=== PATIENT | female | born 1950 | race African-American/Black ===

== ENCOUNTER 2017-01-23 03:29 | Observation (INO) ==
[2017-01-23] MEDS ORDERED: ONDANSETRON 4 MG/2 ML VIAL IV PRN (07:13)
[2017-01-23] MEDS ORDERED: DEXTROSE 50% 25 GM/50 ML SYRINGE IV PRN (07:16)
[2017-01-23] MEDS ORDERED: GLUCAGON 1 MG VIAL IM PRN (07:16)
[2017-01-23 07:59] LABS: Basophils % 0.4 % (0.0-0.8); Eosinophils % 0.4 % (0.00-10.9); Hematocrit 34.9 VOL% (35.7-47.0); Hemoglobin 12.1 GM/DL (12.0-16.0); Immature Granulocytes % 0.1 %; Immature Granulocytes Absolute 0.01 #; Lymphocytes # 2.1 10*3/uL (1.4-4.0); Lymphocytes % 29.4 % (21.3-54.2); Mean Corpuscular HGB Conc 34.7 GM/DL (32-36); Mean Corpuscular Hemoglobin 30 PG (27-34); Mean Corpuscular Volume 86.4 FL (87-102); Monocytes # 0.3 10*3/uL (0.11-0.8); Monocytes % 4.4 % (1.7-12.7); Neutrophils # 4.6 10*3/uL (1.4-7.4); Neutrophils % 65.3 % (38.7-73.9); Platelet Count 230 T/CUMM (130-400); Red Blood Count 4.04 MC/CUMM (3.8-5.5); Red Cell Distribution Width 13.1 % (9.3-17.3)
--- NOTE | 2017-01-23 07:59 | EKG Report ---
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
[2017-01-23 08:13] LABS: CKMB % 0.9 %; Troponin I Only < 0.015 NG/ML (0.00-0.045)
[2017-01-23 08:20] LABS: Albumin 3.4 G/DL (3.4-5.0); Bilirubin,Total 0.7 MG/DL (0.2-1.0); Calcium 9.3 MG/DL (8.5-10.1); Osmolality,Calculated 286.5 MOS/KG (273-304); Potassium 3.6 MMOL/L (3.5-5.1); Risk Ratio 5.49; Thyroid Stimulating Hormone 1.12 uIU/ml (0.358-3.74); Total Protein 7.2 G/DL (6.4-8.3); VLDL CHOLESTEROL 24.6 MG/DL
--- NOTE | 2017-01-23 08:21 | Hospitalist History & Physical ---
<Mark Landa - Last Filed: 01/23/17 09:27> Assessment and Plan (1) Chest pain Status: Acute Assessment and plan: Admit to telemetry. Cardiac monitoring. Serial EKGs and troponins. CBC/BMP. Supplemental O2. Consult cardiology. Current Visit: Yes (2) Diabetes Status: Acute Assessment and plan: Accuchecks achs. SSI. Current Visit: Yes (3) Uncontrolled hypertension Status: Acute Assessment and plan: Restart home meds. prn IV antihypertensive. Current Visit: Yes History of Present Illness Chief complaint: chest pain History of present illness: Ms. Gibson is a 66 year old black female with a history of uncontrolled hypertension, dm, hysterectomy, and diabetic nerve pain that is a transfer from [facility] for further evaluation of chest pain. Pt. was accepted by Dr. Mcgrath onto our service. Her brother is present at the bedside and is later accompanied by her son and daughter in law. Pt. is deaf and mute and unable to provide any information. Pt's brother states that last night around 7 or 8, patient began to have complaints of chest pain. She was reported to have started crying and pointing to her chest. Pt. took her nightly medicines (htn and dm meds) but no medications for the chest pain. Family was unable to report any characteristics of the pain as patient is unable to communicate. The pain persisted through the night and around 2 this morning she was taken to the ED at [facility]. Workup there revealed negative cardiac enzymes but patient's BP was noted to be 256/113 per brother. Family requested transfer to our facility for further evaluation. Patient's brother reports she was recently seen in the ED on Tuesday for lower limb pain and uncontrolled hypertension. She was supposed to follow up with Dr. Byrne but didn't make her appointment. Pt. was seen and examined in Telemetry [place] room 295. Unable to communicate due to communication barriers, patient is alert and oriented. No apparent distress noted. Labs and chart reviewed. Home meds have been reviewed and reconciled. Cardiology consulted for assist in management of patient. Home Medications Medication Instructions Recorded Confirmed Type Glimepiride 4 mg PO BID 01/23/17 01/23/17 History Insulin Glargine [Lantus] 50 unit SUBCUT BEDTIME 01/23/17 01/23/17 History Losartan/Hydrochlorothiazide 1 mg PO DAILY 01/23/17 01/23/17 History [Losartan-Hctz 100-25 mg Tab] cloNIDine HCl [Clonidine HCl] 0.3 mg PO BID 01/23/17 01/23/17 History Allergies Allergy/AdvReac Type Severity Reaction Status Date / Time No Known Allergies Allergy Verified 01/23/17 06:29 Medical,Surgical,& Family Hx - Medical History Cardio: History of: Hypertension HEENT: History of: Ear Problem (deaf) Endocrine: History of: Diabetes Mellitus (IDDM) - Family History Family History: Reports;: Family Cancer (mother), Family Diabetes (father), Family Heart Disease (father) - Social History Smoking Status: Never smoker Frequency of Alcohol Use: None Type of Drug Use: None Marital Status: Single Lives With:: Alone Functional capacity: independent ambulation ROS unobtainable: other (pt is deaf and mute) 12 point system: reviewed and no additional remarkable complaints except as stated Exam - Constitutional Vitals: Period Temp Pulse Resp BP Sys/Salomon Pulse Ox Last 24 Hr 98.6 F 73 20 202-209/86-91 100 General appearance: no acute distress, over weight - Head Head exam: Present: normal inspection, normocephalic - Eye Eye exam: Present: EOMI Pupils: Present: JAVIER - ENT ENT exam: Present: other (pt deaf) - Respiratory Respiratory exam: Present: clear to auscultation bilaterally. Absent: wheezes - Cardiovascular Cardiovascular exam: Present: regular rate and rhythm - GI/Abdominal GI/Abdominal exam: Present: normal bowel sounds, soft. Absent: tenderness - Extremities Exam Extremities exam: Present: normal capillary refill, full ROM. Absent: edema - Neurological Exam Neurological exam: Present: alert, oriented X3 - Psychiatric Psychiatric exam: Present: normal affect, normal mood - Skin Skin exam: Present: normal color, warm, dry Results - Labs CBC & BMP: 01/23/17 07:32 01/23/17 07:32 Lab Results: I have reviewed the past 24 hour labs Labs: Labs reviewed from outside facility: CMP: Na 141 K 4.7 Chloride 109 Carbon dioxide 23 Creatinine 1.69 BUN 35 CBC: WBC 10.03 RBC 3.60 HBG 12.6 HCT 37.7 Plt count 287 Ne 77.3 Ly 13.8 MO 7.5 EO 1.3 BA 0.1 <WhiteTangela R - Last Filed: 01/23/17 13:55> Assessment and Plan (1) Chest pain Status: Acute Assessment and plan: Stress test in a.m. Current Visit: Yes (2) Hyperlipidemia Status: Acute Assessment and plan: Atorvastatin 80 mg at bedtime Current Visit: Yes (3) Diabetes Status: Acute Assessment and plan: Hemoglobin A1c 9, diabetes not well controlled, insulin sliding scale, continue Amaryl and Lantus Current Visit: Yes (4) Uncontrolled hypertension Status: Acute Assessment and plan: We will stop clonidine and substitute for Coreg, will take the diuretic out and give her Cozaar Current Visit: Yes History of Present Illness History of present illness: Ms. Gibson is a 66 year old female seen and examined. Agree with above. Discussed case with Dr. Aviles. It is almost impossible to determine if this is cardiac or noncardiac. The pain appears to get worse when she takes a deep breath making it less likely cardiac. She has risk factors but with her being deaf and mute and not understanding sign language very well it would be hard to rule out cardiac disease. I personally discussed the case with Dr. Aviles and we will plan to do a stress test in the morning. Her elevated blood pressure may be contributing to the chest pain. Medical,Surgical,& Family Hx - Surgical History Additional Surgical History: None Exam - Constitutional Vitals: Period Temp Pulse Resp BP Sys/Salomon Pulse Ox Last 24 Hr 98.0 F-98.6 F 61-73 18-20 120-209/59-91 93-100 - Eye Eye exam: Absent: scleral icterus Pupils: Present: normal accommodation - ENT ENT exam: Present: normal exam, normal external ear exam - Neck Neck exam: Absent: lymphadenopathy, thyromegaly - Cardiovascular Cardiovascular exam: Absent: systolic murmur - Neurological Exam Neurological exam: Present: CN II-XII intact, reflexes normal. Absent: motor sensory deficit - Psychiatric Psychiatric exam: Present: agitated, anxious Results - Labs CBC & BMP: 01/23/17 07:32 01/23/17 07:32 Labs: Hemoglobin A1c 9.2, serial troponins negative, BNP 27. Total cholesterol 269, LDL 195, free T4 1.42 - EKG EKG shows: sinus rhythm (With LVH)
[2017-01-23] MEDS: INSULIN LISPRO 100 UNIT/ML SUBCUT SCH ×4 (08:37→21:13)
[2017-01-23] MEDS: GLIMEPIRIDE 4 MG TABLET PO SCH ×2 (08:37→21:11)
[2017-01-23] MEDS: ENOXAPARIN 40 MG/0.4 ML SYRINGE SUBCUT SCH (08:37)
[2017-01-23] MEDS: PANTOPRAZOLE 40 MG TABLET PO SCH (08:37)
[2017-01-23] MEDS ORDERED: LOSARTAN/HCTZ 50-12.5 MG TABLET PO SCH (09:00)
--- NOTE | 2017-01-23 10:52 | EKG Report ---
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
[2017-01-23] MEDS: SODIUM CHLORIDE 0.45% 1,000 ML IV SCH (14:25)
--- NOTE | 2017-01-23 14:29 | XRay Report ---
Portable chest. Indication: Shortness of breath. The heart is normal in size. The pulmonary vasculature is normal. The lung james are clear. No pneumothorax or pleural effusion. Prominent osteophytes in the thoracic spine and degenerative changes of both shoulders. Note that in the left humeral head, there are lucent areas present within the bone, with surrounding sclerosis. Questionable similar findings in the right humeral head. Correlation with any pain in these locations, and any history of malignancy recommended. Impression: No acute cardiopulmonary process is seen. Mixed density lesions in both humeral heads, worse on the left, not seen on remote studies from 2008. Clinical correlation with associated pain, or any history of malignancy which could yield metastatic disease recommended. Bone scan or MRI may be helpful for further evaluation. PROCEDURE INTERPRETED AT [facility] DEPARTMENT OF RADIOLOGY Final Report Signed by: Dr. Demetrice Cristina
--- NOTE | 2017-01-23 14:31 | EKG Report ---
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
--- NOTE | 2017-01-23 14:35 | Cardiology Consult Note ---
Assessment and Plan (1) Chest pain Status: Acute Assessment and plan: 66-year-old black female, admitted with sudden onset chest pain at rest, lower extremity pain. Deaf and mute. Hypertension, diabetes mellitus. EKG with LVH. Elevated CPK/MB, normal troponin suggestive of muscle injury. -Doubt ACS. -Hypertensive urgency. Continue Coreg, CHING inhibitor. Blood pressure better controlled -Start aspirin, multiple CV risk factors. -Echo, LVH on EKG -Recommend to proceed with ischemic evaluation, pharmacological stress test, if she has recurrent CP, cardiomyopathy, EKG changes or significant arrhythmia on telemetry. Otherwise, this may be followed as an outpatient. -D-dimer. If positive, check DVT study, rule out PE as cause of chest pain -Chest x-ray suspicious of metastatic bone disease. Consider malignancy work -LDL markedly elevated, continue high-dose statin. -Keep on telemetry today Current Visit: Yes (2) Diabetes Status: Acute Current Visit: Yes (3) Uncontrolled hypertension Status: Acute Current Visit: Yes (4) Hyperlipidemia Status: Acute Current Visit: Yes History of Present Illness - Data of Consult Patient: new to practice Consult date: 01/23/17 - Consult Narrative Reason for consult: cp History of present illness: Ms. Gibson is a 66 year old BF, who was not followed by cardiology before. She is deaf and mute, and is unable to communicate much. History was obtained from family member. He states she woke up with sudden onset pain, was pointing towards her chest. Then she also complained of lower extremity pain, which was evaluated recently. No results available. She has a history of hypertension, type 2 diabetes mellitus, but no similar pains before. Currently, she seems very comfortable, pleasant. EKG showed LVH, sinus rhythm. Chest x-ray unremarkable for cardiopulmonary issues,, suspicious for some metastatic disease in the humerus. The family member is not aware of any malignancies in the past. Blood pressure was markedly elevated on admission, now better controlled. Labs show elevated CPK, CPK-MB, with normal troponin. Hemoglobin A1c is also also elevated CC: Tangela Xiong MD - Home Medications and Allergies Home Medications: Home Medications Medication Instructions Recorded Confirmed Type Glimepiride 4 mg PO BID 01/23/17 01/23/17 History Insulin Glargine [Lantus] 50 unit SUBCUT BEDTIME 01/23/17 01/23/17 History Losartan/Hydrochlorothiazide 1 mg PO DAILY 01/23/17 01/23/17 History [Losartan-Hctz 100-25 mg Tab] cloNIDine HCl [Clonidine HCl] 0.3 mg PO BID 01/23/17 01/23/17 History Allergies/Adverse Reactions: Allergies Allergy/AdvReac Type Severity Reaction Status Date / Time No Known Allergies Allergy Verified 01/23/17 06:29 12 point system: reviewed and no additional remarkable complaints except as stated Medical,Surgical,& Family Hx - Medical History Cardio: History of: Hypertension HEENT: History of: Ear Problem (deaf) Endocrine: History of: Diabetes Mellitus (IDDM) - Family History Family History: Reports;: Family Cancer (mother), Family Diabetes (father), Family Heart Disease (father) - Social History Smoking Status: Never smoker Frequency of Alcohol Use: None Type of Drug Use: None Physical Examination Vital Signs Temp Pulse Resp BP Pulse Ox 98.6 F 73 20 202/86 100 01/23/17 05:12 01/23/17 05:12 01/23/17 05:12 01/23/17 05:12 01/23/17 05:12 General: Present: Appears Well, No Apparent Distress HEENT: Present: Normocephaly, Mucus Membranes Moist Neck: Present: No JVD/HJR, No Lymphadenopathy, No Thyromegaly Cardiac: Present: Regular Rate, Regular Rhythm, S1/S2, Systolic Murmur. Absent : Laterally Displaced Lungs: Present: Normal Breath Sounds, No Wheeze, Rales, Rhonchi Neuro: Present: Grossly Intact, Other (Deaf and mute) Abdomen: Present: Soft, Active Bowel Sounds Skin: Present: Clear, Black Extremities: Present: No Clubbing, No Cyanosis, No Edema Result/EKG - Labs CBC & BMP: 01/23/17 07:32 01/23/17 07:32 Lab Results: I have reviewed the past 24 hour labs Labs: Laboratory Results - last 24 hr 01/23/17 01/23/17 01/23/17 07:32 07:32 07:32 WBC RBC Hgb Hct MCV MCH MCHC RDW Plt Count MPV Neut % (Auto) Lymph % (Auto) [place] % (Auto) Eos % (Auto) Baso % (Auto) Neut # (Auto) Lymph # (Auto) [place] # (Auto) Eos # (Auto) Baso # (Auto) Immature Gran % Nucleated RBC % Immature Gran # Nucleated RBCs # Immature Plt Fraction Sodium Potassium Chloride Carbon Dioxide Anion Gap BUN Creatinine GFR Calculation BUN/Creatinine Ratio Glucose POC Glucose Hemoglobin A1c 9.2 H Calculated Osmolality Calcium Magnesium Total Bilirubin AST ALT Alkaline Phosphatase Total Creatine Kinase 752 H CK-MB (CK-2) 7.1 H CK and CKMB Interp 0.9 Troponin I < 0.015 B-Natriuretic Peptide Total Protein Albumin Globulin Albumin/Globulin Ratio Triglycerides Cholesterol LDL Cholesterol VLDL Cholesterol HDL Cholesterol Heart Disease Risk Ratio Free T4 1.42 TSH 3rd Generation 01/23/17 01/23/17 01/23/17 07:32 07:32 07:32 WBC 7.0 RBC 4.04 Hgb 12.1 Hct 34.9 L MCV 86.4 L MCH 30 MCHC 34.7 RDW 13.1 Plt Count 230 MPV 12.0 Neut % (Auto) 65.3 Lymph % (Auto) 29.4 [place] % (Auto) 4.4 Eos % (Auto) 0.4 Baso % (Auto) 0.4 Neut # (Auto) 4.6 Lymph # (Auto) 2.1 [place] # (Auto) 0.3 Eos # (Auto) 0.0 Baso # (Auto) 0.0 Immature Gran % 0.1 Nucleated RBC % 0.0 Immature Gran # 0.01 Nucleated RBCs # 0.00 Immature Plt Fraction 0.0 Sodium 139 Potassium 3.6 Chloride 103 Carbon Dioxide 28 Anion Gap 11.6 BUN 18 Creatinine 1.10 H GFR Calculation 67 BUN/Creatinine Ratio 16.00 Glucose 246 H POC Glucose Hemoglobin A1c Calculated Osmolality 286.5 Calcium 9.3 Magnesium 2.0 Total Bilirubin 0.70 AST 34 ALT 27 Alkaline Phosphatase 54 Total Creatine Kinase CK-MB (CK-2) CK and CKMB Interp Troponin I B-Natriuretic Peptide 27 Total Protein 7.2 Albumin 3.4 Globulin 3.8 H Albumin/Globulin Ratio 0.8 L Triglycerides 123 Cholesterol 269 H LDL Cholesterol 195.0 VLDL Cholesterol 24.6 HDL Cholesterol 49 Heart Disease Risk Ratio 5.49 Free T4 TSH 3rd Generation 1.120 01/23/17 01/23/17 11:13 11:39 WBC RBC Hgb Hct MCV MCH MCHC RDW Plt Count MPV Neut % (Auto) Lymph % (Auto) [place] % (Auto) Eos % (Auto) Baso % (Auto) Neut # (Auto) Lymph # (Auto) [place] # (Auto) Eos # (Auto) Baso # (Auto) Immature Gran % Nucleated RBC % Immature Gran # Nucleated RBCs # Immature Plt Fraction Sodium Potassium Chloride Carbon Dioxide Anion Gap BUN Creatinine GFR Calculation BUN/Creatinine Ratio Glucose POC Glucose 257 H Hemoglobin A1c Calculated Osmolality Calcium Magnesium Total Bilirubin AST ALT Alkaline Phosphatase Total Creatine Kinase CK-MB (CK-2) CK and CKMB Interp Troponin I 0.016 B-Natriuretic Peptide Total Protein Albumin Globulin Albumin/Globulin Ratio Triglycerides Cholesterol LDL Cholesterol VLDL Cholesterol HDL Cholesterol Heart Disease Risk Ratio Free T4 TSH 3rd Generation - EKG EKG results: interpreted by me
[2017-01-23 15:08] LABS: Troponin I Only < 0.015 NG/ML (0.00-0.045)
--- NOTE | 2017-01-23 17:29 | EKG Report ---
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
[2017-01-23] MEDS: ACETAMINOPHEN 325 MG TABLET PO PRN (17:48)
[2017-01-23 19:40] LABS: CKMB % 0.8 %; Troponin I Only < 0.015 NG/ML (0.00-0.045)
[2017-01-23] MEDS: ATORVASTATIN 80 MG TABLET PO SCH (21:11)
[2017-01-23] MEDS: CARVEDILOL 25 MG TABLET PO SCH (21:11)
[2017-01-23] MEDS: INSULIN GLARGINE 100 UNIT/ML SUBCUT SCH (21:14)
[2017-01-24] MEDS: SODIUM CHLORIDE 0.45% 1,000 ML IV SCH ×3 (02:47→17:44)
[2017-01-24 06:08] LABS: Basophils % 0.5 % (0.0-0.8); Eosinophils # 0.1 10*3/uL (0.0-0.87); Eosinophils % 1.3 % (0.00-10.9); Hematocrit 34.8 VOL% (35.7-47.0); Hemoglobin 12.1 GM/DL (12.0-16.0); Immature Granulocytes % 0.3 %; Immature Granulocytes Absolute 0.02 #; Lymphocytes # 2.4 10*3/uL (1.4-4.0); Lymphocytes % 31.9 % (21.3-54.2); Mean Corpuscular HGB Conc 34.8 GM/DL (32-36); Mean Corpuscular Hemoglobin 30 PG (27-34); Mean Corpuscular Volume 86.4 FL (87-102); Mean Platelet Volume 12.3 FL (9.6-12.0); Monocytes # 0.4 10*3/uL (0.11-0.8); Monocytes % 4.7 % (1.7-12.7); Neutrophils # 4.6 10*3/uL (1.4-7.4); Neutrophils % 61.3 % (38.7-73.9); Platelet Count 231 T/CUMM (130-400); Red Blood Count 4.03 MC/CUMM (3.8-5.5); Red Cell Distribution Width 13.1 % (9.3-17.3); White Blood Count 7.5 T/CUMM (4-12)
[2017-01-24 06:39] LABS: Calcium 8.8 MG/DL (8.5-10.1); Osmolality,Calculated 281.5 MOS/KG (273-304); Potassium 3.6 MMOL/L (3.5-5.1)
[2017-01-24] MEDS: INSULIN LISPRO 100 UNIT/ML SUBCUT SCH ×4 (08:27→21:17)
--- NOTE | 2017-01-24 10:20 | Cardiology Progress Note ---
Assessment and Plan - Time spent with patient Time spent with patient: Less than 30 minutes (1) Chest pain Status: Acute Assessment and plan: See plan of care listed below. Current Visit: Yes (2) Uncontrolled hypertension Status: Acute Assessment and plan: See plan of care listed below. Current Visit: Yes (3) Hyperlipidemia Status: Chronic Assessment and plan: See plan of care listed below. Current Visit: Yes (4) Diabetes Status: Chronic Assessment and plan: See plan of care listed below. 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 Gisbon is a 66-year-old BF who was admitted with sudden onset chest pain. History was initially obtained from a family member. She is deaf and mute and unable to communicate much. She has a history of hypertension, type 2 diabetes mellitus. Her EKG showed LVH, sinus rhythm and labs showed elevated CPK , CK-MB with normal troponin, suggestive of muscle injury. Chest x-ray unremarkable for cardiopulmonary issues, suspicious for some metastatic disease in the humerus. D-Dimer was negative. 2016: Patient underwent Lexiscan Cardiolite this morning without difficulty. She had no significant EKG changes noted. Results are pending. Her blood pressure has remained elevated since admission. She was on clonidine prior to admission. When she receives her blood pressure medications today, if her blood pressures do not come down, we could start her on some hydralazine or procardia. Will await further recommendations from Dr. Curran. IMPRESSION/PLAN: 1. CHEST PAIN: Patient is difficult to communicate with. Unsure if she has had recurrent episodes of pain similar to what she presented with. Stress test results and echocardiogram are pending. 2. DIABETES: Hemoglobin A1c 9.2. She is on Accu-Cheks and sliding scale insulin. 3. HYPERTENSION: BP elevated this morning, medications on hold for stress test. Will continue to monitor and adjust accordingly. If her blood pressure remains elevated after resuming her Coreg and Losartan, would consider adding her on Procardia or hydralazine. 4. HYPERLIPIDEMIA: LDL markedly elevated at 195. Continue high-dose statin. Exam (Progress Note) - Constitutional Vitals: Period Temp Pulse Resp BP Sys/Salomon Pulse Ox Last 24 Hr 97.9 F-98.3 F 59-68 18-20 120-198/59-89 97-100 Exam: General appearance: Appears well. Pleasant and cooperative. Overweight, no acute distress. Head exam: Present: normal inspection, normocephalic, atraumatic. Absent: hematoma, laceration Eye exam: Present: EOMI. Absent: conjunctival injection, nystagmus, periorbital swelling, scleral icterus, laceration to eyelids, jaundice Pupils: Present: PERRL. Absent: constricted, dilated, fixed, irregular, unequal ENT exam: Present: normal exam, normal external ear exam, mucous membranes moist. Neck exam: Present: normal inspection, midline trachea. Absent: masses, lymphadenopathy, tenderness, thyromegaly, carotid bruit Respiratory exam: Present: clear to auscultation bilaterally. Absent: accessory muscle use, chest wall tenderness, rales, rhonchi, wheezing. Cardiovascular exam: Present: regular rate and rhythm. Systolic murmur. Absent : gallop, JVD, rubs GI/Abdominal exam: Present: normal bowel sounds, soft. Absent: distended, firm , hernia, mass, tenderness. Extremities exam: Present: Normal Gait, No Clubbing, No Cyanosis, Upper Extr. Pulses 2+, Lower Extr. Pulses 2+, No edema. Capillary refill less than 3 seconds. Musculoskeletal: Present: No Fluid Collection, No Pain, Normal Range of Motion Back exam: Present: normal inspection. Absent: muscle spasm, vertebral tenderness Neurological exam: Present: awake, alert, Moves all extremities well without hemiparesis or paralysis. Nods appropriately to questions asked. Able to write name to sign consent for stress test. Grossly intact without resting or essential tremor Psychiatric exam: Present: normal affect, normal mood Skin exam: Present: normal color, warm, dry, intact. Absent: cyanosis, diaphoretic, rash, urticaria Result/EKG - Labs CBC & BMP: 01/24/17 04:38 01/24/17 04:38 Lab Results: I have reviewed the past 24 hour labs Labs: Laboratory Results - last 24 hr 01/23/17 01/23/17 01/23/17 07:32 11:13 11:39 WBC RBC Hgb Hct MCV MCH MCHC RDW Plt Count MPV Neut % (Auto) Lymph % (Auto) [place] % (Auto) Eos % (Auto) Baso % (Auto) Neut # (Auto) Lymph # (Auto) [place] # (Auto) Eos # (Auto) Baso # (Auto) Immature Gran % Nucleated RBC % Immature Gran # Nucleated RBCs # Immature Plt Fraction D-Dimer, Quantitative Sodium Potassium Chloride Carbon Dioxide Anion Gap BUN Creatinine GFR Calculation BUN/Creatinine Ratio Glucose POC Glucose 257 H Calculated Osmolality Calcium Magnesium Total Creatine Kinase CK-MB (CK-2) CK and CKMB Interp Troponin I 0.016 B-Natriuretic Peptide 27 01/23/17 01/23/17 01/23/17 14:25 15:52 16:01 WBC RBC Hgb Hct MCV MCH MCHC RDW Plt Count MPV Neut % (Auto) Lymph % (Auto) [place] % (Auto) Eos % (Auto) Baso % (Auto) Neut # (Auto) Lymph # (Auto) [place] # (Auto) Eos # (Auto) Baso # (Auto) Immature Gran % Nucleated RBC % Immature Gran # Nucleated RBCs # Immature Plt Fraction D-Dimer, Quantitative <= 0.5 Sodium Potassium Chloride Carbon Dioxide Anion Gap BUN Creatinine GFR Calculation BUN/Creatinine Ratio Glucose POC Glucose 197 H Calculated Osmolality Calcium Magnesium Total Creatine Kinase 632 H CK-MB (CK-2) 5.0 H CK and CKMB Interp Troponin I < 0.015 B-Natriuretic Peptide 01/23/17 01/23/17 01/24/17 18:51 20:41 04:38 WBC 7.5 RBC 4.03 Hgb 12.1 Hct 34.8 L MCV 86.4 L MCH 30 MCHC 34.8 RDW 13.1 Plt Count 231 MPV 12.3 H Neut % (Auto) 61.3 Lymph % (Auto) 31.9 [place] % (Auto) 4.7 Eos % (Auto) 1.3 Baso % (Auto) 0.5 Neut # (Auto) 4.6 Lymph # (Auto) 2.4 [place] # (Auto) 0.4 Eos # (Auto) 0.1 Baso # (Auto) 0.0 Immature Gran % 0.3 Nucleated RBC % 0.0 Immature Gran # 0.02 Nucleated RBCs # 0.00 Immature Plt Fraction 0.0 D-Dimer, Quantitative Sodium Potassium Chloride Carbon Dioxide Anion Gap BUN Creatinine GFR Calculation BUN/Creatinine Ratio Glucose POC Glucose 149 H Calculated Osmolality Calcium Magnesium Total Creatine Kinase 648 H CK-MB (CK-2) 5.2 H CK and CKMB Interp 0.8 Troponin I < 0.015 B-Natriuretic Peptide 01/24/17 01/24/17 01/24/17 04:38 04:38 08:14 WBC RBC Hgb Hct MCV MCH MCHC RDW Plt Count MPV Neut % (Auto) Lymph % (Auto) [place] % (Auto) Eos % (Auto) Baso % (Auto) Neut # (Auto) Lymph # (Auto) [place] # (Auto) Eos # (Auto) Baso # (Auto) Immature Gran % Nucleated RBC % Immature Gran # Nucleated RBCs # Immature Plt Fraction D-Dimer, Quantitative Sodium 139 Potassium 3.6 Chloride 103 Carbon Dioxide 28 Anion Gap 11.6 BUN 14 Creatinine 1.00 GFR Calculation 75 BUN/Creatinine Ratio 14.00 Glucose 175 H POC Glucose 169 H Calculated Osmolality 281.5 Calcium 8.8 Magnesium 2.0 Total Creatine Kinase CK-MB (CK-2) CK and CKMB Interp Troponin I B-Natriuretic Peptide 56 - EKG EKG results: interpreted by me, sinus rhythm
--- NOTE | 2017-01-24 10:24 | Event Note ---
Patient admitted with chest pain. She is deaf and mute. She underwent Lexiscan Cardiolite without difficulty. She had no significant EKG changes noted. She denies any chest pain, heaviness, tightness, or shortness of breath. Patient had a nuclear medicine for final scan. Dr. Curran to read, interpret, and advise.
[2017-01-24] MEDS: CARVEDILOL 25 MG TABLET PO SCH ×2 (11:01→21:16)
[2017-01-24] MEDS: ENOXAPARIN 40 MG/0.4 ML SYRINGE SUBCUT SCH (11:01)
[2017-01-24] MEDS: LOSARTAN 50 MG TABLET PO SCH (11:01)
[2017-01-24] MEDS: PANTOPRAZOLE 40 MG TABLET PO SCH (11:01)
[2017-01-24] MEDS: GLIMEPIRIDE 4 MG TABLET PO SCH ×2 (11:01→21:16)
[2017-01-24] MEDS ORDERED: REGADENOSON 0.4 MG/5 ML SYRINGE IV ONE (11:02)
[2017-01-24] MEDS: hydrALAZINE 20 MG/1 ML VIAL IV PRN ×2 (12:44→21:15)
--- NOTE | 2017-01-24 16:38 | Hospitalist Progress Note ---
Assessment and Plan (1) Chest pain Status: Acute Assessment and plan: The patient is admitted hospital with chest discomfort. The patient's feeling better. The patient lives semi-independently. Her brother is at the room and we discussed the possibility of discharge home if the patient's nuclear study is within normal limits. Current Visit: Yes (2) Diabetes Status: Chronic Current Visit: Yes Hospitalist: Subjective Interval history: The patient was admitted to the hospital on the morning of the with chest discomfort. The patient had cardiology evaluation. EKG and cardiac enzymes were used to rule out myocardial infarction. The patient had treadmill exercise test with nuclear medicine study performed on the . At the time of progress note the nuclear scan interpretation is not yet available. Exam - Constitutional Vitals: Period Temp Pulse Resp BP Sys/Salomon Pulse Ox Last 24 Hr 97.2 F-98.3 F 59-72 18-20 138-198/76-90 97-100 General appearance: no acute distress - Respiratory Respiratory exam: Present: clear to auscultation bilaterally - Cardiovascular Cardiovascular exam: Present: regular rate and rhythm - GI/Abdominal GI/Abdominal exam: Present: normal bowel sounds Results - Labs CBC & BMP: 01/24/17 04:38 01/24/17 04:38 Lab Results: I have reviewed the past 24 hour labs
--- NOTE | 2017-01-24 18:32 | ECHO Report ---
Reji Gibson Exam Date: 01/24/2017 13:22 Referring Physician: Technologist: daryl Lisa ARDMS, RVT Age: 66 Ht (in): 65 Wt (lb): 189 Gender: F Exam Location: [facility] Echo Indications: Essential (primary) hypertension, Chest pain, unspecified, Hyperlipidemia BP: 184 / 82 HR: 62 Rhythm: Sinus Technical Quality: Technically difficult study IMPRESSIONS Technically difficult study Normal chamber sizes 1+ concentric LVH Normal LV systolic function with ejection fraction estimated be 65% without obvious wall motion normality 1+ tricuspid regurgitation with RVSP 20 mmHg plus RAP MEASUREMENTS (Male / Female) Normal Values 2D ECHO LV Diastolic Diameter PLAX 3.5 cm 4.2 - 5.9 / 3.9 - 5.3 cm LV Systolic Diameter PLAX 1.7 cm LV Fractional Shortening PLAX 53.0 % IVS Diastolic Thickness 1.3 cm 0.6 - 1.0 / 0.6 - 0.9 cm LVPW Diastolic Thickness 1.4 cm 0.6 - 1.0 / 0.6 - 0.9 cm RV Internal Dim ED PLAX 2.8 cm Aortic Root Diameter 2.4 cm LA Systolic Diameter LX 2.6 cm 3.0 - 4.0 / 2.7 - 3.8 cm DOPPLER TR Peak Velocity 263.0 cm/s TR Peak Gradient 27.7 mmHg FINDINGS Left Ventricle Normal left ventricular cavity size. Mild left ventricular hypertrophy. Left ventricular ejection fraction is estimated at 65%. Right Ventricle The right ventricle is normal in size and function. Right Atrium The right atrium is normal in size. Left Atrium The left atrium is normal in size. Mitral Valve Morphologically normal mitral valve without significant stenosis or prolapse. There is no mitral regurgitation. Aortic Valve Morphologically normal aortic valve without significant sclerosis or stenosis. There is no aortic regurgitation. Tricuspid Valve Morphologically normal tricuspid valve without significant stenosis or regurgitation. Pulmonary artery systolic pressure is normal. Pulmonic Valve Pulmonic valve not well visualized. No pulmonary valve regurgitation. Pericardium Normal pericardium without effusion. Aorta Normal ascending aorta dimension. Clifford Curran (Electronically Signed) Final Date: 24 January 2017 18:15
--- NOTE | 2017-01-24 20:50 | Nuclear Medicine Report ---
ATTENDING PHYSICIAN: Dr. Marrero. BRIEF CLINICAL SUMMARY: The patient is a 66-year-old female reportedly admitted with chest pain. PHARMACOLOGIC SESTAMIBI MYOCARDIAL PERFUSION SCAN WITH GATING: The patient was injected with 10 mCi of sestamibi before being sent for resting images to be obtained. She then was placed on a Lexiscan protocol where she received 0.4 mg of Lexiscan prior to being injected with 30 mCi of sestamibi and w as then sent for stress images to be obtained. The patient had no EKG changes or symptoms during the study. The 3-D orthogonal and reconstruction views show some moderate decreased pulmonary uptake on the rest images inferiorly on the short and vertical axis as well as modest amount of decrease at the apex on the vertical and horizontal axis. However, the defect is completely resolved on the stress images. There is a modest amount of extracardiac radiotracer uptake adjacent and contiguous with the inferio r wall in the rest and stress images in the short and vertical axis. The gated stress images show borderline LV systolic function with ejection fraction estimated to be 5 6%. Wall motion analysis shows no clear wall motion abnormality with normal end-diastolic volume. The raw data in cine mode shows no patient motion with modest breast attenuation and moderate GI inez fact along the inferior border. IMPRESSION: 1. SCINTIGRAPHICALLY PROBABLY NORMAL PHARMACOLOGIC MYOCARDIAL PERFUSION SCAN WITH GATING. 2. BORDERLINE LEFT VENTRICULAR SYSTOLIC FUNCTION WITH EJECTION FRACTION ESTIMATED UP TO 46%. 3. WALL MOTION IS RELATIVELY NORMAL WITHOUT CLEAR SEGMENTAL WALL MOTION ABNORMALITY WITH NORMAL END- DIASTOLIC VOLUME. RECOMMENDATION AND DISCUSSION: This study does not suggest the presence of significant coronary isch emia. The inferoapical defect in the rest images resolved on the stress images. There was reasonabl e amount of artifact. The patient's borderline LV function is noted. Procedure performed and interpreted at [facility] Department of Radiology.
[2017-01-24] MEDS: ATORVASTATIN 80 MG TABLET PO SCH (21:16)
[2017-01-24] MEDS: INSULIN GLARGINE 100 UNIT/ML SUBCUT SCH (21:17)
[2017-01-25] MEDS: hydrALAZINE 20 MG/1 ML VIAL IV PRN (04:30)
[2017-01-25] MEDS: ACETAMINOPHEN 325 MG TABLET PO PRN (04:47)
[2017-01-25] MEDS: SODIUM CHLORIDE 0.45% 1,000 ML IV SCH (07:36)
[2017-01-25] MEDS: INSULIN LISPRO 100 UNIT/ML SUBCUT SCH ×2 (08:26→13:12)
[2017-01-25] MEDS: ENOXAPARIN 40 MG/0.4 ML SYRINGE SUBCUT SCH (08:27)
--- NOTE | 2017-01-25 09:45 | Discharge Summary ---
<Cyndy Palma - Last Filed: 01/25/17 09:41> Hospital Course - Hospital Course Hospital Course: 66-year-old deaf-mute -[place] female with history of uncontrolled hypertension, diabetes, hysterectomy, and diabetic nerve pain transferred from [facility] and admitted by the hospitalist on 01/23/2017 with chest pain. The patient improved on symptomatic care of her chronic conditions. The patient had stress test with nuclear medicine study. It did not reveal evidence of coronary ischemia. Chest x-ray did reveal some changes in the bilateral humerus which were likely due to osteoarthritis but could represent missed static disease. I reviewed the findings with her brother at the room who is her decision-maker. He wished to have outpatient follow-up and was ready to take her home. The patient has reached maximum medical benefit of hospitalization and is now discharged. On the date of discharge, chest is clear and abdomen soft. Heart has regular rate and rhythm. Patient medications were reconciled upon admission, and again at the time of discharge. The patient was screened for tobacco use and found to be a never smoker The patient's medical decsion maker is her brother, and when asked, he asked for the patient to be full code Discharge Time was 32 minutes, including final examination, evaluation and planning, education, reconciliation of medications, writing prescriptions, coordinating care with mattress spring encaser, and preparing discharge documentation. - Time spent with patient Time with patient DS: Greater than 30 minutes Discharge Plan - Discharge Data Disposition: Disch To Home/Self Care - Discharge Medications New Atorvastatin [Lipitor] 40 mg PO BEDTIME #60 tablet Carvedilol [Coreg] 25 mg PO BID #90 tablet Continue cloNIDine HCl [Clonidine HCl] 0.3 mg PO BID Glimepiride 4 mg PO BID Insulin Glargine [Lantus] 50 unit SUBCUT BEDTIME Losartan/Hydrochlorothiazide [Losartan-Hctz 100-25 mg Tab] 1 mg PO DAILY - Follow Up or Referral Follow Up: Your,PCP [Other] - Forms/Instructions Exam - Constitutional Vitals: Period Temp Pulse Resp BP Sys/Salomon Pulse Ox Last 24 Hr 97.3 F-99.2 F 65-73 16-20 164-197/68-100 97-100 Discharge Results Procedures and tests throughout hospitalization: Pending Orders 01/25/17 12:47 NM bone scan whole body Routine Labs on day of discharge: Labs from last 24 hours 01/25/17 01/25/17 01/25/17 11:33 08:07 04:26 POC Glucose 292 H 188 H 209 H 01/24/17 01/24/17 19:56 15:49 POC Glucose 145 H 230 H DS: Provider Date of admission: 01/23/17 05:12 Primary care physician: Fermín Robin Attending physician on admission: Tangela Xiong MD Consults: 01/23/17 07:13 Consult to Physician [CONS] Routine Comment: chest pain Consulting Provider: Jamie Aivles 01/23/17 07:15 Consult to Case Mgmt/Social Srvs [CONS] Routine Reason for Case Mgmt/Social Srvs: Discharge Planning Discharging clinician: SHUN Oneal Expected date of discharge: 01/25/17 <Justin Marrero - Last Filed: 01/25/17 13:07> Diagnosis - Discharge Diagnosis (1) Chest pain Status: Resolved (2) Diabetes Status: Chronic Discharge Plan - Discharge Data Condition at Discharge: Stable Discharge Diet: diabetic diet Activity: resume usual activities as tolerated
[2017-01-25] MEDS: LOSARTAN 50 MG TABLET PO SCH (09:50)
[2017-01-25] MEDS: CARVEDILOL 25 MG TABLET PO SCH (09:51)
[2017-01-25] MEDS: GLIMEPIRIDE 4 MG TABLET PO SCH (09:51)
[2017-01-25] MEDS: PANTOPRAZOLE 40 MG TABLET PO SCH (09:52)
[2017-01-25 13:13] VITALS: BP 170/80
--- NOTE | 2017-01-25 16:12 | Event Note ---
Low risk myocardial scan as per report. She can be discharged from cardiac standpoint. She will follow-up with cardiology in approximately 2 weeks time.
== END 2017-01-25 14:40 | disposition home or self-care (01) ==
LOC: N.TELEN 05:12 → SUATTDRO 05:12 → INTOOBSV 05:12
PROVIDERS: ADMIT Internal Medicine; ATTEND Internal Medicine

== ENCOUNTER 2017-05-06 13:44 | Inpatient (IN) ==
[2017-05-06] MEDS ORDERED: SODIUM CHLORIDE 0.9% 1,000 ML IV STA ×2 (14:23→16:34)
[2017-05-06] MEDS ORDERED: ONDANSETRON 4 MG/2 ML VIAL IV STA (14:23)
[2017-05-06 14:54] LABS: Basophils % 0.5 % (0.0-0.8); Hematocrit 39.4 VOL% (35.7-47.0); Hemoglobin 13.2 GM/DL (12.0-16.0); Immature Granulocytes % 0.4 %; Immature Granulocytes Absolute 0.03 #; Lymphocytes # 0.9 10*3/uL (1.4-4.0); Lymphocytes % 10.3 % (21.3-54.2); Mean Corpuscular HGB Conc 33.5 GM/DL (32-36); Mean Corpuscular Hemoglobin 30 PG (27-34); Mean Corpuscular Volume 90.4 FL (87-102); Monocytes # 0.5 10*3/uL (0.11-0.8); Monocytes % 5.6 % (1.7-12.7); Neutrophils % 83.2 % (38.7-73.9); Platelet Count 344 T/CUMM (130-400); Red Blood Count 4.36 MC/CUMM (3.8-5.5); Red Cell Distribution Width 13.5 % (9.3-17.3); White Blood Count 8.4 T/CUMM (4-12)
[2017-05-06] MEDS ORDERED: ONDANSETRON 4 MG/2 ML VIAL ONE (15:25)
[2017-05-06 15:30] LABS: Albumin 4.5 G/DL (3.4-5.0); Bilirubin,Total 0.8 MG/DL (0.2-1.0); Calcium 10.2 MG/DL (8.5-10.1); Total Protein 8.3 G/DL (6.4-8.3)
[2017-05-06 15:31] LABS: Osmolality,Calculated 296.1 MOS/KG (273-304); Potassium 4.3 MMOL/L (3.5-5.1)
[2017-05-06] MEDS ORDERED: ONDANSETRON 4 MG/2 ML VIAL IV PRN (17:42)
[2017-05-06] MEDS: SODIUM CHLORIDE 0.9% 1,000 ML IV SCH (19:30)
[2017-05-07] MEDS: SODIUM CHLORIDE 0.9% 1,000 ML IV SCH ×2 (06:31→20:10)
[2017-05-07 06:39] LABS: Basophils # 0.1 10*3/uL (0.0-0.2); Basophils % 0.7 % (0.0-0.8); Eosinophils % 0.4 % (0.00-10.9); Hematocrit 31.3 VOL% (35.7-47.0); Immature Granulocytes % 0.4 %; Immature Granulocytes Absolute 0.03 #; Lymphocytes # 1.9 10*3/uL (1.4-4.0); Lymphocytes % 23.6 % (21.3-54.2); Mean Corpuscular HGB Conc 34.2 GM/DL (32-36); Mean Corpuscular Hemoglobin 30 PG (27-34); Mean Corpuscular Volume 88.7 FL (87-102); Mean Platelet Volume 11.9 FL (9.6-12.0); Monocytes # 0.7 10*3/uL (0.11-0.8); Monocytes % 8.6 % (1.7-12.7); Neutrophils # 5.4 10*3/uL (1.4-7.4); Neutrophils % 66.3 % (38.7-73.9); Platelet Count 305 T/CUMM (130-400); Red Blood Count 3.53 MC/CUMM (3.8-5.5); Red Cell Distribution Width 13.7 % (9.3-17.3); White Blood Count 8.2 T/CUMM (4-12)
[2017-05-07 07:01] LABS: Osmolality,Calculated 302.3 MOS/KG (273-304); Potassium 3.4 MMOL/L (3.5-5.1)
[2017-05-07 07:13] LABS: Hemoglobin 10.7 GM/DL (12.0-16.0)
[2017-05-07] MEDS ORDERED: SPIRONOLACTONE 50 MG TABLET PO SCH (09:00)
[2017-05-07] MEDS ORDERED: LOSARTAN/HCTZ 50-12.5 MG TABLET PO SCH (09:00)
[2017-05-07] MEDS: INSULIN REGULAR 100 UNIT/ML SUBCUT SCH ×3 (13:19→23:41)
[2017-05-07] MEDS: ATORVASTATIN 40 MG TABLET PO SCH (20:12)
[2017-05-07 23:10] LABS: Apearance,Urine CLEAR (Clear); Bilirubin,Urine Negative (Negative); Blood, Urine Negative (Negative); Glucose,Urine (UA) Negative (Negative); Hyaline Casts,Urine 7 /LPF (0-3); Ketones,Urine 5 mg/dL (Negative); Nitrite,Urine Negative (Negative); Protein,Urine Negative; RBC,Urine <1 /HPF (0-4); Squamous Epithelial Cell,Urine Occasional /HPF (0-10); Urine Color Yellow (Yellow); Urine Specific Gravity 1.011 (1.001-1.035); WBC,Urine 1 /HPF (0-6)
[2017-05-08 06:34] LABS: Basophils # 0.1 10*3/uL (0.0-0.2); Eosinophils # 0.1 10*3/uL (0.0-0.87); Hemoglobin 11.1 GM/DL (12.0-16.0); Immature Granulocytes % 0.1 %; Immature Granulocytes Absolute 0.01 #; Lymphocytes # 1.6 10*3/uL (1.4-4.0); Mean Corpuscular HGB Conc 33.6 GM/DL (32-36); Mean Corpuscular Hemoglobin 30 PG (27-34); Mean Corpuscular Volume 90.2 FL (87-102); Mean Platelet Volume 11.8 FL (9.6-12.0); Monocytes # 0.6 10*3/uL (0.11-0.8); Monocytes % 7.6 % (1.7-12.7); Neutrophils # 5.3 10*3/uL (1.4-7.4); Neutrophils % 69.3 % (38.7-73.9); Platelet Count 300 T/CUMM (130-400); Red Blood Count 3.66 MC/CUMM (3.8-5.5); Red Cell Distribution Width 13.8 % (9.3-17.3); White Blood Count 7.6 T/CUMM (4-12)
[2017-05-08] MEDS: INSULIN REGULAR 100 UNIT/ML SUBCUT SCH ×4 (07:01→23:54)
[2017-05-08 07:04] LABS: Albumin 3.6 G/DL (3.4-5.0); Calcium 9.2 MG/DL (8.5-10.1); Magnesium 1.9 MG/DL (1.8-2.4); Potassium 3.3 MMOL/L (3.5-5.1); Total Protein 6.9 G/DL (6.4-8.3)
[2017-05-08] MEDS: SODIUM CHLORIDE 0.9% 1,000 ML IV SCH (10:08)
[2017-05-08] MEDS ORDERED: POTASSIUM CHLORIDE RIDER 10 MEQ in PREMIX 1 EACH IV ONE (10:41)
[2017-05-08] MEDS ORDERED: POLYETHYLENE GLYCOL POWDER 17 GM PACK PO ONE (14:59)
[2017-05-08] MEDS ORDERED: POLYETHYLENE GLYCOL POWDER 17 GM PACK PO PRN (15:04)
[2017-05-08] MEDS: DEXTROSE 5% NACL 0.45% 1,000 ML IV SCH (16:18)
[2017-05-08] MEDS: amLODIPine 10 MG TABLET PO SCH (16:18)
[2017-05-08] MEDS: METOPROLOL TARTRATE 5 MG/5 ML VIAL IV SCH ×2 (17:37→23:53)
[2017-05-08] MEDS: ATORVASTATIN 40 MG TABLET PO SCH (20:46)
[2017-05-09] MEDS: METOPROLOL TARTRATE 5 MG/5 ML VIAL IV SCH ×3 (05:40→18:24)
[2017-05-09] MEDS: DEXTROSE 5% NACL 0.45% 1,000 ML IV SCH (05:50)
[2017-05-09] MEDS: INSULIN REGULAR 100 UNIT/ML SUBCUT SCH ×3 (06:24→18:25)
[2017-05-09] MEDS: amLODIPine 10 MG TABLET PO SCH (09:04)
[2017-05-09] MEDS: POTASSIUM CHLORIDE 20 MEQ/15 ML UDCUP PER TUBE PRN ×2 (09:04→13:23)
[2017-05-09] MEDS: ATORVASTATIN 40 MG TABLET PO SCH (21:23)
[2017-05-10] MEDS: METOPROLOL TARTRATE 5 MG/5 ML VIAL IV SCH ×4 (00:49→17:37)
[2017-05-10] MEDS: INSULIN REGULAR 100 UNIT/ML SUBCUT SCH ×4 (00:57→17:37)
[2017-05-10 06:08] LABS: Basophils # 0.1 10*3/uL (0.0-0.2); Basophils % 0.8 % (0.0-0.8); Eosinophils % 0.5 % (0.00-10.9); Hematocrit 36.5 VOL% (35.7-47.0); Hemoglobin 12.2 GM/DL (12.0-16.0); Immature Granulocytes % 0.3 %; Immature Granulocytes Absolute 0.02 #; Lymphocytes # 1.3 10*3/uL (1.4-4.0); Mean Corpuscular HGB Conc 33.4 GM/DL (32-36); Mean Corpuscular Hemoglobin 30 PG (27-34); Mean Corpuscular Volume 89.5 FL (87-102); Mean Platelet Volume 11.8 FL (9.6-12.0); Monocytes # 0.5 10*3/uL (0.11-0.8); Monocytes % 8.5 % (1.7-12.7); Neutrophils # 4.4 10*3/uL (1.4-7.4); Neutrophils % 69.9 % (38.7-73.9); Platelet Count 339 T/CUMM (130-400); Red Blood Count 4.08 MC/CUMM (3.8-5.5); Red Cell Distribution Width 13.5 % (9.3-17.3); White Blood Count 6.3 T/CUMM (4-12)
[2017-05-10 06:35] LABS: Bilirubin,Total 0.8 MG/DL (0.2-1.0); Calcium 9.1 MG/DL (8.5-10.1); Magnesium 1.3 MG/DL (1.8-2.4); Osmolality,Calculated 283.3 MOS/KG (273-304); Potassium 3.5 MMOL/L (3.5-5.1); Total Protein 6.7 G/DL (6.4-8.3)
[2017-05-10] MEDS ORDERED: TUBERCULIN SKIN TEST 0.1 ML SYRINGE INTRADERM ONE (08:43)
[2017-05-10] MEDS: amLODIPine 10 MG TABLET PO SCH (08:57)
[2017-05-10] MEDS: ATORVASTATIN 40 MG TABLET PO SCH (20:33)
[2017-05-11] MEDS: INSULIN REGULAR 100 UNIT/ML SUBCUT SCH ×4 (00:42→17:40)
[2017-05-11] MEDS: METOPROLOL TARTRATE 5 MG/5 ML VIAL IV SCH ×4 (01:20→19:07)
[2017-05-11] MEDS ORDERED: GLUCAGON 1 MG VIAL IM PRN (08:12)
[2017-05-11] MEDS ORDERED: DEXTROSE 50% 25 GM/50 ML VIAL IV PRN (08:12)
[2017-05-11] MEDS: amLODIPine 10 MG TABLET PO SCH (09:47)
[2017-05-11] MEDS ORDERED: PROPOFOL 200 MG/20 ML VIAL IV ONE (13:00)
[2017-05-11] MEDS ORDERED: LIDOCAINE 100 MG/5 ML SYRINGE ONE (13:00)
[2017-05-11] MEDS: ATORVASTATIN 40 MG TABLET PO SCH (20:53)
[2017-05-12] MEDS: INSULIN REGULAR 100 UNIT/ML SUBCUT SCH ×4 (00:32→17:34)
[2017-05-12] MEDS: METOPROLOL TARTRATE 5 MG/5 ML VIAL IV SCH ×4 (00:37→17:34)
[2017-05-12 05:51] LABS: Basophils # 0.1 10*3/uL (0.0-0.2); Basophils % 1.1 % (0.0-0.8); Eosinophils # 0.3 10*3/uL (0.0-0.87); Eosinophils % 4.3 % (0.00-10.9); Hematocrit 33.7 VOL% (35.7-47.0); Immature Granulocytes % 0.3 %; Immature Granulocytes Absolute 0.02 #; Lymphocytes # 2.4 10*3/uL (1.4-4.0); Lymphocytes % 34.2 % (21.3-54.2); Mean Corpuscular HGB Conc 32.6 GM/DL (32-36); Mean Corpuscular Hemoglobin 30 PG (27-34); Mean Corpuscular Volume 90.8 FL (87-102); Mean Platelet Volume 12.1 FL (9.6-12.0); Monocytes # 0.6 10*3/uL (0.11-0.8); Neutrophils # 3.7 10*3/uL (1.4-7.4); Neutrophils % 52.1 % (38.7-73.9); Platelet Count 270 T/CUMM (130-400); Red Blood Count 3.71 MC/CUMM (3.8-5.5); Red Cell Distribution Width 13.7 % (9.3-17.3)
[2017-05-12 06:19] LABS: Albumin 2.9 G/DL (3.4-5.0); Bilirubin,Total 0.8 MG/DL (0.2-1.0); Calcium 8.8 MG/DL (8.5-10.1); Magnesium 1.5 MG/DL (1.8-2.4); Osmolality,Calculated 288.3 MOS/KG (273-304); Potassium 3.1 MMOL/L (3.5-5.1); Total Protein 6.2 G/DL (6.4-8.3)
[2017-05-12] MEDS: POTASSIUM CHLORIDE 20 MEQ/15 ML UDCUP PER TUBE PRN ×4 (08:48→17:32)
[2017-05-12] MEDS: amLODIPine 10 MG TABLET PO SCH (08:52)
[2017-05-12] MEDS: POTASSIUM CHLORIDE 20 MEQ TABLET PO SCH ×2 (17:34→20:57)
[2017-05-12] MEDS: ATORVASTATIN 40 MG TABLET PO SCH (20:56)
[2017-05-13] MEDS: POTASSIUM CHLORIDE 20 MEQ TABLET PO SCH (01:38)
[2017-05-13] MEDS: METOPROLOL TARTRATE 5 MG/5 ML VIAL IV SCH ×3 (01:39→11:30)
[2017-05-13] MEDS: INSULIN REGULAR 100 UNIT/ML SUBCUT SCH ×3 (01:55→11:41)
[2017-05-13 07:08] LABS: Calcium 8.5 MG/DL (8.5-10.1); Magnesium 1.3 MG/DL (1.8-2.4); Osmolality,Calculated 280.7 MOS/KG (273-304); Potassium 3.9 MMOL/L (3.5-5.1)
[2017-05-13] MEDS: amLODIPine 10 MG TABLET PO SCH (09:29)
[2017-05-13 10:53] VITALS: BP 150/73
== END 2017-05-13 13:36 | DRG 683 ==
LOC: EDBD → EDUNIT# → EDSEX → N.ED 13:44 → N.EDINP 16:53 → SUATTDRO 16:53 → N.5E 17:22
PROVIDERS: ADMIT Internal Medicine; ATTEND Internal Medicine Nephrology